=== PATIENT | male | born 1970 | race Caucasian/White ===

== ENCOUNTER 2016-10-28 18:35 | Emergency (ER) | payer OTHER ==
[~2016-10-28] VITALS: Ht 162.6 cm; Wt 104.5 kg
[2016-10-28 18:45] VITALS: BP 154/80; PULSE 110; RESP 20; O2SAT 97
--- NOTE | 2016-10-28 18:51 | ED.REPORT ---
HPI-Chest Pain 40 and Over Date of Service Oct 28, 2016 ED Provider: Jj Velez MD A 46 year old male with a history of HTN , hypercholesterolemia, and heartburn presents to the ED complaining of chest pain onset yesterday. Pain is described as feeling like heartburn and a pressure sitting on his chest. The patient was feeling good yesterday until they ate dinner last night and immediately had diarrhea that was initially dark but is now clear and yellow. Associated symptoms include abdominal pain, SOB, and a non productive cough. Per nurse, patient was pale and dizzy while walking at triage. He denies any vomit. The patient has had a cough for the last few weeks and felt sick prior to that. Bseline heart burn sometimes occurs while eating and can last for hours, for which he has taken Zantac. He also reports that his face sometimes gets hot at work, with no accompanying diaphoresis. He reports no problems with exertion in the past few weeks. The patient's father had a NC while in his 60's. The patient denies any recent long distance travel, antibiotic use, or major surgical procedures. He does not smoke and does not frequently drink alcohol. Nursing Notes Stated Complaint: CHEST PAIN, SHORTNESS OF BREATH, DIARRHEA Chief Complaint: Chest Pain Nursing Notes Reviewed: Yes ([employer] not reconciled) Allergies: Coded Allergies: No Known Allergies (Unverified , 10/28/16) Scheduled PRN Loperamide (Loperamide) 2 Mg Tablet 2 MG PO Q4H PRN PRN For Diarrhea or Loose Stool Take one tablet after each episode of diarrhea up to 6-8 tabs in a 24-hour period General Time Seen by MD: 18:50 Chief Complaint Chest pain Hx Obtained From: Patient Arrived By: Walk-in Sudden in Onset?: Yes Onset Occurred: Yesterday Symptom Duration: Since onset Severity: Current: Moderate Severity: Maximum: Moderate Recent Healthcare: No recent doctor visit Similar Sx Previous: No Past Medical History Past Medical History Hypercholesterolemia Reports: Hypertension Family History Father had NC in his 60's Smoking History Unknown if Ever Smoker Social History Alcohol Use: "Social" Ambulatory Status Independent Review of Systems Respiratory: Reports: Non-productive cough, Shortness of breath Cardiovascular: Reports: Chest pain GI: Reports: Abdominal pain, Diarrhea, Denies: Vomiting Neurologic: Reports: Dizziness Complete sys rev & neg: except as marked. Physical Exam Initial Vital Signs Vital Signs (First) Date Time Temp Pulse Resp B/P Pulse Ox O2 Delivery O2 Flow Rate FiO2 10/28/16 18:45 37.0 110 20 154/80 97 Room Air Initial VS: Reviewed, Vital signs abnormal General/Constitutional: Awake, Alert Does not appear signifigantly dehydrated clinically. Respiratory / Chest: Atraumatic, Breath sounds NL, Breath sounds = bilat, No respiratory distress, No rales, No rhonchi, No wheezing Cardiovascular: Heart rate NL, Regular rhythm, Heart sounds NL, No gallop, No murmurs, No rubs No signs of heart failure. Abdomen: Atraumatic, Soft, Non-tender (Nontender throughout) Neck: Atraumatic, Full range of motion Back: Atraumatic, Full range of motion Lower Extremity / Pelvis / MS: Atraumatic, Full range of motion, No edema Skin: Atraumatic, Warm, Dry Neurologic: Oriented X3, Speech NL Head / Eyes: Atraumatic, Normocephalic, PERRL, EOMI ENT: Atraumatic, Mucous membranes moist Upper Extremity / MS: Atraumatic, Full range of motion Wrist / Hand: Atraumatic, Full range of motion Interpretation & Diagnostics Lab Results Interpretation Result Diagram: 10/28/16184410/28/16 184 Test 10/28/16 18:45 White Blood Count 15.7th/mm3 (3.8-10.1) Red Blood Count 5.37mil/mm3 (4.40-5.80) Hemoglobin 13.5g/dL (13.8-17.2) Hematocrit 41.2% (41.0-50.0) Mean Corpuscular Volume 76.7fL (81-100) Mean Corpuscular Hemoglobin 25.1pg (27.0-35.0) Mean Corpuscular Hemoglobin Concent 32.8% (32.0-37.0) Red Cell Distribution Width 15.1% (12.3-15.4) Platelet Count 452bil/L (150-400) Neutrophils (%) (Auto) 76.9% (40-74) Lymphocytes (%) (Auto) 14.7% (14-46) Monocytes (%) (Auto) 6.2% (4-12) Eosinophils (%) (Auto) 1.8% (0-5) Basophils (%) (Auto) 0.1% (0-3) Sodium Level 134mEq/L (134-144) Potassium Level 3.5mEq/L (3.5-5.2) Chloride Level 97mEq/L (97-108) Carbon Dioxide Level 18mmol/L (18-29) Blood Urea Nitrogen 14mg/dL (6-24) Creatinine 0.77mg/dL (0.76-1.27) Estimat Glomerular Filtration Rate 117mL/min (>59) Glucose Level 121mg/dL (60-99) Calcium Level 9.4mg/dL (8.5-10.1) Magnesium Level 1.9mg/dL (1.6-2.6) Total Bilirubin 1.6mg/dL (0.0-1.2) Aspartate Amino Transf (AST/SGOT) 21U/L (0-50) Alanine Aminotransferase (ALT/SGPT) 18U/L (0-44) Alkaline Phosphatase 111U/L (25-150) Troponin T < 0.010ug/L (0.0-0.011) Total Protein 8.0g/dL (6.4-8.4) Albumin 4.2g/dL (3.4-5.0) Hold Branch Top Tube Received (Received) ECG Interpretation ECG Interpretation: Normal sinus rhythm. Rate is 78. Normal ECG. No signs of ischemia. Time: 19:30 Interpreted by: ED physician X-Ray Chest Interpretation Chest Xray Interpretation: IMPRESSION: No acute process. Dictated by: Mayank Snyder M.D. on 10/28/2016 at 19:46 Approved by: Mayank Snyder M.D. on 10/28/2016 at 19:46 Interpretation / Wet Read by: Interpret - Radiologist Re-Eval/Medical Decision Source of Hx: Old records (none in EMR) Time of Eval: 20:43 Re-Evaluation/Progress Note: Rechecked patient, explained test results, diagnosis, and plan for discharge. Patient understands and agrees with the plan. All questions addressed. Counseled Regarding: Diagnosis, Lab results, Need for follow-up, When/why to return to ED Discharge & Departure Primary Impression: Diarrhea Additional Impression: Chest pain Chest pain type: unspecified Qualified Code: R07.9 - Chest pain, unspecified Disposition: Home Discharge Condition All VS Reviewed: Yes Condition: Improved Additional Instructions: 1. The diarrhea is most likely from a viral infection, but is expected to continue to improve rapidly with time. You can take loperamide 2mg - one tab after each episode of diarrhea up to 6-8 tabs in 24/hours. This usually works well to stop the diarrhea. 2. Your heart tests were normal, and no pneumonia or findings of a bacterial infection were evident on her chest x-ray. 3. There is one stool test that will take 1-2 days for results. We will call you if it is abnormal, or you can call at any time [phone] for results. 4. Diet as tolerated - just start with small amounts. 5. Return if new or worsening symptoms Referrals: Burt Kendrick MD (Family) Scribe Attestation Portions of this note were transcribed by Elfego Monet. I, Dr. Velez, personally performed the history, physical exam and medical decision-making; I reviewed and confirmed the accuracy of the information in the transcribed note. Signed by Elfego Haney, 10/28/[id number]. copies to: Burt Kendrick MD, Matthew F MD Oct 28, 2016 18:51 Elfego Monet Oct 28, 2016 18:58
[2016-10-28] MEDS ORDERED: 0.9% Sodium Chloride 1,000 ML IV ONE (19:00)
[2016-10-28 19:06] LABS: BASOPHILS % (AUTO) 0.1 % (0-3); EOSINOPHILS % (AUTO) 1.8 % (0-5); MONOCYTES % (AUTO) 6.2 % (4-12); Mean Corpuscular Hemoglobin 25.1 pg (27.0-35.0); Mean Corpuscular Volume 76.7 fL (81-100); NEUTROPHILS % (AUTO) 76.9 % (40-74); Platelet Count 452 bil/L (150-400)
[2016-10-28 19:47] LABS: Magnesium 1.9 mg/dL (1.6-2.6)
--- NOTE | 2016-10-28 19:48 | DRSVH ---
PROCEDURE: X-RAY CHEST ONE VIEW, PORTABLE ([id number]) INDICATIONS: chest pain TECHNIQUE: One view of the chest was acquired. COMPARISON: None. FINDINGS: Surgical changes and devices: None. Lungs and pleura: No pleural effusions or pneumothorax. Lungs are clear. Mediastinum: Mediastinal contours appear normal. Heart size is normal. Bones and chest wall: No suspicious bony lesions. Overlying soft tissues appear unremarkable. IMPRESSION: No acute process. Dictated by: Mayank Snyder M.D. on 10/28/2016 at 19:46 Approved by: Mayank Snyder M.D. on 10/28/2016 at 19:46
[2016-10-28 19:50] LABS: TROPONIN T < 0.010 ug/L (0.0-0.011)
[2016-10-28 19:52] VITALS: BP 139/68; PULSE 79; RESP 18; O2SAT 97
[2016-10-28] MEDS ORDERED: LOPE2TAB32 PO (20:46)
[2016-10-28 21:02] VITALS: BP 142/82; PULSE 88; RESP 16; O2SAT 96
== END 2016-10-28 21:00 | disposition home or self-care (01) ==
LOC: SED 18:35
DX: R19.7 Diarrhea, unspecified (principal); R07.89 Other chest pain; R06.02 Shortness of breath; R05 Cough; R10.9 Unspecified abdominal pain; R42 Dizziness and giddiness; R12 Heartburn; E78.00 Pure hypercholesterolemia, unspecified; I10 Essential (primary) hypertension
CPT/HCPCS: 36415; 71010; 80053; 83735; 84484; 85025; 93005; 96360; 99285; J7030